=== PATIENT | male | born 1955 | race Caucasian/White ===

== ENCOUNTER 2025-04-07 17:45 | Emergency (ER) | payer MEDICARE, OTHER ==
[2025-04-07] MEDS ORDERED: Metoprolol Tartrate 5 MG (5 mL) VIAL ONE ×2 (18:51→20:25)
[2025-04-07 18:56] LABS: INR-International Normal Ratio 1.3; Prothrombin Time 16.0 sec (12.0-14.7)
[2025-04-07 18:57] LABS: PTT 32.5 sec (22.9-36.1)
[2025-04-07 19:02] LABS: Bilirubin, Direct 0.9 mg/dL (0.1-0.3); Bilirubin, Total 1.9 mg/dL (0.3-1.2)
[2025-04-07 19:06] LABS: Troponin I Less than 0.010 ng/mL (< 0.028)
[2025-04-07 19:09] LABS: Magnesium 1.9 mg/dL (1.6-2.6)
[2025-04-07 20:29] LABS: #Basophils 0.0 thou/uL (0.0-0.2); #Eosinophils 0.0 thou/uL (0.0-0.7); #Lymphocytes 1.2 thou/uL (1.20-3.40); #Monocytes 0.2 thou/uL (0.11-0.59); #Neutrophils 1.0 thou/uL (1.40-6.50); %Basophils 0.8 % (0.0-1.0); %Eosinophils 1.4 % (0.0-10.0); %Lymphocytes 48.4 % (21.0-51.0); %Monocytes 7.6 % (0.0-10.0); %Neutrophils 41.9 % (42.0-75.0); Hematocrit 15.4 % (42.0-52.0); Hemoglobin 5.3 g/dL (14.0-18.0); Mean Corpuscular Hemoglobin 34.9 pg (27.0-31.0); Mean Corpuscular Volume 101.1 fl (78.0-98.0); Platelet Count 80 10x3/uL (130-400); Red Blood Cell (RBC) Count 1.52 mill/uL (4.70-6.10); White Blood Cell (WBC) Count 2.5 10x3/uL (4.8-10.8)
[2025-04-07] MEDS ORDERED: Enoxaparin 60 MG (0.6 mL) SYRINGE ONE (20:58)
== END 2025-04-07 23:39 | disposition short-term general hospital (02) ==
LOC: MADERS 17:45
DX: D61.818 Other pancytopenia (principal); I48.20 Chronic atrial fibrillation, unspecified; D64.9 Anemia, unspecified; I50.9 Heart failure, unspecified; Z55.6 Problems related to health literacy
CPT/HCPCS: 71045; 82247; 83735; 83880; 84443; 84484; 85610; 85730; 86850; 86900; 86901; 93005; 96372; 96374; 96376; J1650